=== PATIENT | female | born 1985 | race Caucasian/White ===

== ENCOUNTER 2023-07-27 09:47 | Day surgery (SDC) | payer OTHER, SELFPAY ==
--- NOTE | 2023-07-27 | PATH_ITS ---
[facility] Accession Number: [id number] No. of containers..01 Tissue . 01 Material submitted: . stomach - GASTRIC BIOPSY . 01 Clinical history: . R/O HP . 01 Diagnosis: GASTRIC BIOPSY: Gastric mucosa with mild chronic inflammation. No Helicobacter organisms identified. No intestinal metaplasia, dysplasia, or malignancy identified. [facility] 08/03/20231718 Local . 01 Electronically signed: . Armani Gaines MD, Pathologist NPI- [id number] . 01 Gross description: . Received in formalin with two patient identifiers and gastric biopsy, are two lind soft tissue fragments, 0.4 to 0.2 cm in greatest dimension. Submitted entirely in A1. ([id number]) /MRV 08/03/20231718 Local . 01 Microscopic: . GASTRIC BIOPSY: An immunohistochemical stain was performed to evaluate for Helicobacter organisms and is negative. The control stains appropriately. * This test was developed and its performance characteristics determined by [facility]. It has not been cleared or approved by the [place]. Food and Drug Administration. The FDA has determined that such clearance or approval is not necessary. This test is used for clinical purposes. It should not be regarded as investigational or for research. . 01 Pathologist provided ICD-10: K29.50 . 01 CPT . 880796, G38620 Specimen Comment: A courtesy copy of this report has been sent to [phone] Performed at: [address] [id number] MD Armani Gaines MD Phone: [phone]
[2023-07-27 10:16] VITALS: BP 110/78; PULSE 62; RESP 16; TEMP 36.6; O2SAT 98
[2023-07-27] MEDS: LACTATED RINGERS 1,000 ML 42 ML IV (10:25)
--- NOTE | 2023-07-27 11:19 | PM.PREOP ---
Pre-operative Note COVID-19 COVID-19 status: Negative Interval Note History & Physical reviewed/Exam performed by Physician: Yes Changes to H&P: No ASA Class (for procedural sedation): II
--- NOTE | 2023-07-27 11:20 | PM.OP.EGD ---
Operative Date/Time/Diagnoses Date of procedure: 07/27/23 Pre-op diagnosis: See indication and findings Procedure & Clinicians Study performed: EGD Indications: Worsening abdominal pain and lower chest pain Surgeon: Malathi Lee Procedure Notes Procedure in detail: After informed consent was obtained the patient was placed in left lateral decubitus position. The video endoscope was placed into the oropharynx and with the patient's help swallowed into the esophagus. The esophagus stomach and duodenum were carefully examined. On withdrawal, retroflexed view the GE junction was performed. The scope was removed. The patient tolerated procedure well. Blood loss none Complications none Sedation mac Findings 1. Esophagus mostly normal with the exception the GE junction where 1 triangular erosion was present. 2. Scattered gastric erythema biopsies taken to rule out Helicobacter 3. Normal duodenal bulb and sweep We will be in touch regarding pathology. I do suggest that patient goes and purchases pantoprazole 40 mg to take once a day and do that for at least a month before calling is to let us know how she is doing.
[2023-07-27 11:34] VITALS: BP 107/65; PULSE 61; RESP 14; TEMP 36.2; O2SAT 92
[2023-07-27 11:39] VITALS: BP 107/66; PULSE 58; RESP 14; O2SAT 94
[2023-07-27 11:44] VITALS: BP 108/61; PULSE 68; RESP 14; O2SAT 98
[2023-07-27 11:53] VITALS: BP 106/67; PULSE 59; RESP 14; TEMP 36.3; O2SAT 98
== END 2023-07-27 12:08 | disposition home or self-care (01) ==
PROVIDERS: Referring Provider Internal Medicine Gastroenterology; Visit Provider Internal Medicine Gastroenterology
PROC: 0DJ08ZZ Inspection of Upper Intestinal Tract, Via Natural or Artificial Opening Endoscopic (ICD-10-PCS; CPT 43235; principal; 2023-07-27 11:00)
DX: K29.50 Unspecified chronic gastritis without bleeding (principal)
CPT/HCPCS: 43239; J2704